=== PATIENT | female | born 1960 | race Caucasian/White ===

== ENCOUNTER 2017-08-18 10:26 | Emergency (ER) | payer SELFPAY ==
[2017-08-18 10:32] VITALS: BMI 37.8
--- NOTE | 2017-08-18 11:18 | DR.HEADACH ---
HPI - Time Seen Time seen: 11:11 - Primary Care Physician Primary Care Physician: MIKE - HPI Comment HPI Comment: Patient presents with complain of migraine headache. She admits to a history of migraine has been living in [facility] where she saw a neurologist and her migraine was not controlled. She recently moved to area has no physician and need medication for migraine headache. She has tried OTC medication. She states that no mecication really work. Additionall, patient states that she had COPD, has been out of medication. She is on albuterol, has been months since treatment. - Complaint/Symptoms Chief Complaint:: PT C/O HAVING A MIGRAINE FOR THE PAST 3 DAYS AND THAT SHE HAS CHRONIC MIGRAINES ,,, PT STATES SHE WENT TO ER IN [place] AND THAT SHE WAITED FOR 7 HOURS THEN LEFT. - Source History Provided: Patient - Mode of Arrival Mode of Arrival: Ambulatory - Timing Onset of Chief Complaint: 08/16/17 - Location Headache Location: Generalized - Severity Headache Severity: Moderate PMH - PMH Past Medical History: Yes Past Medical History: Anxiety, COPD, Diabetes, Migraines Past Medical History Comment: CIRROSIS, SYNCOPE , Past Surgical History: Yes Past Surgical History Comment: CARPAL TUNNEL, CYST TO LEFT OVARY, ANTERIOR CERVICAL NECK . - Family History History of Family Medical Conditions: No - Social History Does patient currently use any type of tobacco product: Yes Have you used tobacco products in the last 12 months: Yes Type of Tobacco Use: Cigarettes How many years tobacco product used: 41 Does any household member use tobacco: No Alcohol Use: None Do you use any recreational Drugs:: No Lives With: Family Lives Where: Home - infectious screening In the last 2 months have you had wt loss of >10#?: NO Have you had fever, night sweats or hemotysis?: No Have you traveled outside the country in the last 6 months?: No Isolation: Standard ROS - Review of Systems Eyes: No Symptoms Reported ENTM: No Symptoms Reported Respiratoy: No Symptoms Reported Cardiovascular: No Symptoms Reported Gastrointestinal/Abdominal: No Symptoms Reported Genitourinary: No Symptoms Reported Neurological: Headache Musculoskeletal: No Symptoms Reported Integumentary: No Symptoms Reported Hematologic/Lymphatic: No Symptoms Reported Endocrine: No Symptoms Reported Psychiatric: No Symptoms Reported All Other Systems: Reviewed and Negative PE - Vital Signs Vitals: Temperature 98 F Pulse Rate 69 Respiratory Rate 20 Blood Pressure [Left Arm] 147/74 Blood Pressure 174/74 O2 Sat by Pulse Oximetry 98 - General Limitations: No Limitations General Appearance: Alert - Head Head Exam: Normal Inspection - Eyes Eye exam: Normal Appearance, PERRL, EOMI Eyelids: Normal Inspection: Bilateral Pupils: Regular, Round: Bilateral Sclera/Conjunctival: Normal Inspection: Bilateral - ENT ENT Exam: Normal Exam, Normal Oropharynx External Ear Exam: Normal External Inspection TM/Canal Exam: Bilateral Normal Nose Exam: Normal Nose Exam Mouth Exam: Normal Inspection Teeth Exam: Normal Inspection Throat Exam: Normal Inspection - Neck Neck Exam: Normal Inspection, Full ROM - Chest Chest Inspection: Normal Inspection - Respiratory Respiratory Exam: Normal Lung Sounds Bilat Respiratory Exam: Bilateral Clear to Auscultation - Cardiovascular Cardiovascular Exam: Regular Rate, Normal Rhythm - Abdominal Exam Abdominal Exam: Normal Inspection, Normal Bowel Sounds Abdominal Tenderness: negative: RUQ, RLQ, LUQ, LLQ, Epigastrium, Suprapubic, Diffuse, Mild, Moderate, Severe, Other - Extremities Extremities Exam: Normal Inspection, Full ROM - Back Back Exam: Normal Inspection - Neurologic Neurological Exam: Alert, Oriented X3, CN II-XII Intact - Psychiatric Psychiatric Exam: Normal Affect, Normal Mood - Skin Skin Exam: Warm, Dry, Intact Course - Reevaluation 1st: Improved ROR - XRAY XRAY Interpreted by: Radiologist (Chest: No acute chest findings.) - Diagnosis Discharge Problem: Migraine headache Qualifiers: Migraine type: without aura Status migrainosus presence: without status migrainosus Intractability: not intractable Qualified Code(s): G43.009 - Migraine without aura, not intractable, without status migrainosus COPD (chronic obstructive pulmonary disease) Qualifiers: COPD type: unspecified COPD Qualified Code(s): J44.9 - Chronic obstructive pulmonary disease, unspecified - Follow ups/Referrals Follow ups/Referrals: NFD,None [Primary Care Provider] - 3 days - Instructions
[2017-08-18] MEDS ORDERED: BENADRYL INJ 50 MG VIAL IV ONE (11:19)
[2017-08-18] MEDS ORDERED: COMPAZINE INJ IVP ONE (11:19)
[2017-08-18] MEDS ORDERED: DUONEB 0.5 MG/3 MG NEB ONE ×2 (11:41→12:12)
[2017-08-18] MEDS ORDERED: DUONEB 0.5 MG/3 MG ONE ×2 (11:42→12:16)
[2017-08-18 11:48] VITALS: BP 147/74
[2017-08-18] MEDS ORDERED: NS 1000 ML 1,000 ML IV SCH (12:00)
--- NOTE | 2017-08-18 12:13 | RAD ---
Examination: Portable AP chest History: COPD Findings: Normal transverse heart diameter with clear lungs and pleural spaces. Impression: No acute chest findings. Reported By:
[2017-08-18] MEDS ORDERED: SOLU-Medrol 125 MG VIAL IVP ONE (12:15)
[2017-08-18] MEDS ORDERED: SOLU-Medrol 125 MG VIAL ONE (12:16)
== END 2017-08-18 13:03 | disposition home or self-care (01) ==
LOC: ER 10:49
DX: J44.9 Chronic obstructive pulmonary disease, unspecified (principal); G43.009 Migraine without aura, not intractable, without status migrainosus
CPT/HCPCS: 71045; 96365; 96367; 96374; 96375; 99282; 99283; J2930; J7620